=== PATIENT | male | born 1980 | race Hispanic/Latino ===

== ENCOUNTER → 2018-09-17 | Outpatient (CLI) | payer OTHER | LOC: SLEEP 20:06 | PROVIDERS: ATTEND Otolaryngology | DX: G47.33 Obstructive sleep apnea (adult) (pediatric) (principal) | CPT/HCPCS: 95810 ==

== ENCOUNTER → 2018-10-21 | Outpatient (CLI) | payer OTHER ==
--- NOTE | 2018-11-01 18:57 | Polysomnography ---
DATE OF STUDY: 10/21/2018 REFERRING PHYSICIAN: Manuel Saavedra MD INTERPRETING PHYSICIAN: Manuel Saavedra MD STUDY: INTERPRETATION of CPAP TITRATION POLYSOMNOGRAPHY IMPRESSION: 1. Significant response to CPAP at 13 cm of water pressure, which resulted in significant reduction of respiratory events. 2. Snoring was resolved at ending pressure. 3. No limb movement disorder was observed. RECOMMENDATIONS: 1. CPAP pressure at 13 cm of water pressure with heated humidifier. 2. Avoid consumption of alcohol or sedatives before bedtime. 3. Weight reduction to ideal body weight. 4. Advise patient that excessive daytime sleepiness could pose a danger to the patient and others while driving or operating heavy machinery, and to use caution until symptoms are treated and improved. 5. Patient to follow up with physician to discuss results of study. Manuel Saavedra MD JKY/MODL /[id number] MTDD
== END ==
LOC: SLEEP 20:16
PROVIDERS: ATTEND Otolaryngology
DX: G47.33 Obstructive sleep apnea (adult) (pediatric) (principal)
CPT/HCPCS: 95811